=== PATIENT | male | born 1955 | race Caucasian/White ===

== ENCOUNTER 2019-11-24 02:15 | Inpatient (IN) ==
[2019-11-24] MEDS ORDERED: Naloxone 0.4 MG/ML INJ IVP PRN (06:05)
[2019-11-24] MEDS ORDERED: Acetaminophen 325 MG TABLET PO PRN (06:05)
[2019-11-24] MEDS ORDERED: 0.9 % Sodium Chloride 1,000 ML IVC SCH (06:15)
[2019-11-24] MEDS ORDERED: *HR* LORazepam 2 MG/ML VIAL IVP PRN ×3 (06:25→08:18)
[2019-11-24 07:25] LABS: Basophils % 0.2 %; Hematocrit 40.9 % (37.5-50.1); Hemoglobin 14.3 g/dL (12.9-16.9); Immature Granulocytes % 0.6 % (0-4); Lymphocytes # 0.5 K/mcL (0.6-4.6); Mean Corpuscular Hemoglobin 33.9 pg (28.0-33.3); Mean Corpuscular Volume 96.9 fL (83.0-100.0); Mean Platelet Volume 10.3 fL (9.4-12.4); Monocytes # 0.2 K/mcL (0.0-1.3); Monocytes % 1.4 %; Neutrophils # 10.9 K/mcL (1.6-8.9); Platelet Count 103 K/mcL (140-400); Red Blood Count 4.22 M/mcL (4.19-5.50); Red Cell Distribution Width 12.5 % (11.5-14.5); Segmented Neutrophils % 93.8 %; White Blood Count 11.6 K/mcL (4.3-11.1)
[2019-11-24 07:26] LABS: INR 1.3; Prothrombin Time 14.5 Seconds (9.4-12.1)
[2019-11-24] MEDS ORDERED: Magnesium Sulfate 1 GM/102 ML PIGGYBACK IVPB ONE (07:27)
[2019-11-24 07:28] LABS: Activated Partial Thrombo Time 32.2 Seconds (26.0-36.0)
[2019-11-24 07:47] LABS: Alanine Aminotransferase 79 Units/L (7-52); Albumin 3.2 g/dL (3.5-5.7); Albumin/Globulin Ratio 0.8 (1.1-2.2); Alkaline Phosphatase 105 Units/L (34-104); Aspartate Amino Transferase 122 Units/L (13-39); BUN/Creatinine Ratio 10 (6-26); Bilirubin,Direct 1.9 mg/dL (0.0-0.2); Bilirubin,Indirect 1.7 mg/dL (0.0-1.0); Bilirubin,Total 3.6 mg/dL (0.3-1.0); Blood Urea Nitrogen 7 mg/dL (8-23); Calcium 8.9 mg/dL (8.6-10.3); Carbon Dioxide 34 mEq/L (23-29); Chloride 73 mEq/L (98-107); Globulin 3.9 g/dL (2.4-3.5); Glucose 159 mg/dL (70-105); Osmolality,Calculated 241 (280-300); Potassium 3.3 mEq/L (3.5-5.1); Sodium 115 mEq/L (136-145); Total Protein 7.1 g/dL (6.4-8.9); eGFR For African Americans > 60 (> 60); eGFR For Non-African Americans > 60 (> 60)
[2019-11-24] MEDS: Ipratropium/Albuterol Neb 3 ML IH SCH ×5 (08:02→22:14)
[2019-11-24] MEDS: Thiamine (B-1) 100 MG, Folic Acid 1 MG, MVI, adult with vitamin K 10 ML in 0.9 % Sodi... IVPB SCH (08:30)
[2019-11-24] MEDS: *HR* LORazepam 2 MG/ML VIAL IVP PRN ×3 (08:44→20:23)
[2019-11-24] MEDS: Piperacillin/Tazobactam 3.375 GM in 0.9 % Sodium Chloride Mini Bag 100 ML IVPB SCH ×2 (09:26→17:37)
[2019-11-24] MEDS: Nicotine 21 MG PATCH.TD24 TD SCH (09:27)
[2019-11-24] MEDS: predniSONE 20 MG TABLET PO SCH (09:28)
[2019-11-24] MEDS: Azithromycin 250 MG TABLET PO SCH (09:28)
[2019-11-24 09:57] LABS: BUN/Creatinine Ratio 11 (6-26); Blood Urea Nitrogen 7 mg/dL (8-23); Calcium 9.3 mg/dL (8.6-10.3); Carbon Dioxide 34 mEq/L (23-29); Chloride 73 mEq/L (98-107); Glucose 153 mg/dL (70-105); Osmolality,Calculated 245 (280-300); Potassium 3.2 mEq/L (3.5-5.1); Sodium 117 mEq/L (136-145); Uric Acid 6.9 mg/dL (2.3-7.6); eGFR For African Americans > 60 (> 60); eGFR For Non-African Americans > 60 (> 60)
[2019-11-24] MEDS ORDERED: Lidocaine -MPF 1% 5 ML AMPUL INFILT ONE (10:06)
[2019-11-24 10:17] LABS: Magnesium 2.3 mg/dL (1.6-2.6); Phosphorous 2.8 mg/dL (2.7-4.5)
[2019-11-24] MEDS: Budesonide/Formoterol 160/4.5 1 PUFF INH IH SCH ×2 (11:12→22:16)
[2019-11-24] MEDS ORDERED: 0.9 % Sodium Chloride w KCl 20 MEQ/1,000 ML MLS IVC SCH (11:45)
[2019-11-24 12:19] LABS: Bilirubin,Urine Negative (Negative); Blood,Urine Negative (Negative); Clarity,Urine Clear (Clear); Color,Urine Yellow (Yellow); Glucose,Urine (UA) Normal (Normal); Ketones,Urine Negative (Negative); Leukocyte Esterase,Urine Negative (Negative); Nitrite,Urine Negative (Negative); PH,Urine 5.5 pH Units (5.0-8.0); Protein,Urine Negative (Neg-Trace); Specific Gravity,Urine 1.007 (1.010-1.025)
[2019-11-24] MEDS ORDERED: NON-FORMULARY MEDICATION 1 EACH EACH (Ipratropium/Albuterol Sulfate 4 GM) IH SCH (13:00)
[2019-11-24 14:47] LABS: BUN/Creatinine Ratio 16 (6-26); Blood Urea Nitrogen 7 mg/dL (8-23); Calcium 8.1 mg/dL (8.6-10.3); Carbon Dioxide 34 mEq/L (23-29); Chloride 82 mEq/L (98-107); Glucose 146 mg/dL (70-105); Osmolality,Calculated 253 (280-300); Potassium 2.9 mEq/L (3.5-5.1); Sodium 121 mEq/L (136-145); eGFR For African Americans > 60 (> 60); eGFR For Non-African Americans > 60 (> 60)
[2019-11-24] MEDS ORDERED: tiZANidine 4 MG TABLET PO PRN (15:49)
[2019-11-24 20:19] LABS: BUN/Creatinine Ratio 17 (6-26); Blood Urea Nitrogen 7 mg/dL (8-23); Calcium 7.9 mg/dL (8.6-10.3); Carbon Dioxide 31 mEq/L (23-29); Chloride 84 mEq/L (98-107); Glucose 141 mg/dL (70-105); Osmolality,Calculated 248 (280-300); Potassium 5.8 mEq/L (3.5-5.1); Sodium 119 mEq/L (136-145); eGFR For African Americans > 60 (> 60); eGFR For Non-African Americans > 60 (> 60)
[2019-11-24] MEDS: carvediloL 25 MG TABLET PO SCH (20:27)
[2019-11-24] MEDS: Gabapentin 300 MG CAPSULE PO SCH (20:28)
[2019-11-24 21:39] LABS: BUN/Creatinine Ratio 16 (6-26); Blood Urea Nitrogen 7 mg/dL (8-23); Calcium 7.9 mg/dL (8.6-10.3); Carbon Dioxide 30 mEq/L (23-29); Chloride 84 mEq/L (98-107); Glucose 148 mg/dL (70-105); Osmolality,Calculated 253 (280-300); Potassium 3.4 mEq/L (3.5-5.1); Sodium 121 mEq/L (136-145); eGFR For African Americans > 60 (> 60); eGFR For Non-African Americans > 60 (> 60)
[2019-11-25] MEDS: Piperacillin/Tazobactam 3.375 GM in 0.9 % Sodium Chloride Mini Bag 100 ML IVPB SCH ×3 (00:19→16:28)
[2019-11-25] MEDS: Ipratropium/Albuterol Neb 3 ML IH SCH ×4 (03:22→22:04)
[2019-11-25 04:06] LABS: Hematocrit 37.8 % (37.5-50.1)
[2019-11-25 04:08] LABS: Hemoglobin 13.2 g/dL (12.9-16.9); Immature Platelets 6.2 % (1.1-6.1); Mean Corpuscular HGB Conc 34.9 g/dL (31.6-35.5); Mean Corpuscular Hemoglobin 34.6 pg (28.0-33.3); Mean Corpuscular Volume 99.2 fL (83.0-100.0); Mean Platelet Volume 10.3 fL (9.4-12.4); Red Blood Count 3.81 M/mcL (4.19-5.50); Red Cell Distribution Width 12.6 % (11.5-14.5); White Blood Count 16.6 K/mcL (4.3-11.1)
[2019-11-25 04:20] LABS: Alanine Aminotransferase 59 Units/L (7-52); Albumin 2.7 g/dL (3.5-5.7); Albumin/Globulin Ratio 0.8 (1.1-2.2); Alkaline Phosphatase 85 Units/L (34-104); Aspartate Amino Transferase 76 Units/L (13-39); BUN/Creatinine Ratio 18 (6-26); Bilirubin,Total 2.1 mg/dL (0.3-1.0); Blood Urea Nitrogen 7 mg/dL (8-23); Carbon Dioxide 32 mEq/L (23-29); Chloride 87 mEq/L (98-107); Globulin 3.3 g/dL (2.4-3.5); Glucose 138 mg/dL (70-105); Osmolality,Calculated 258 (280-300); Phosphorous 2.9 mg/dL (2.7-4.5); Potassium 3.4 mEq/L (3.5-5.1); Sodium 124 mEq/L (136-145); eGFR For African Americans > 60 (> 60); eGFR For Non-African Americans > 60 (> 60)
[2019-11-25] MEDS: *HR* Enoxaparin 40 MG/0.4 ML SYRINGE SQ SCH (05:57)
[2019-11-25] MEDS: Nicotine 21 MG PATCH.TD24 TD SCH (08:13)
[2019-11-25] MEDS: carvediloL 25 MG TABLET PO SCH ×2 (08:14→21:09)
[2019-11-25] MEDS: Azithromycin 250 MG TABLET PO SCH (08:14)
[2019-11-25] MEDS: Gabapentin 300 MG CAPSULE PO SCH ×3 (08:14→21:09)
[2019-11-25] MEDS: Isosorbide MONOnitrate (24 HR) 30 MG TAB.ER.24H PO SCH (08:14)
[2019-11-25] MEDS: predniSONE 20 MG TABLET PO SCH (08:14)
[2019-11-25] MEDS ORDERED: NON-FORMULARY MEDICATION 1 EACH EACH (Multivitamin [Daily Multiple Vitamin] 1 TAB) PO SCH (09:00)
[2019-11-25] MEDS: Budesonide/Formoterol 160/4.5 1 PUFF INH IH SCH ×2 (11:32→22:05)
[2019-11-25] MEDS: Thiamine (B-1) 100 MG, Folic Acid 1 MG, MVI, adult with vitamin K 10 ML in 0.9 % Sodi... IVPB SCH (16:38)
[2019-11-26] MEDS: Piperacillin/Tazobactam 3.375 GM in 0.9 % Sodium Chloride Mini Bag 100 ML IVPB SCH ×2 (00:55→08:51)
[2019-11-26 03:23] LABS: Hematocrit 34.7 % (37.5-50.1); Hemoglobin 11.9 g/dL (12.9-16.9); Immature Platelets 4.6 % (1.1-6.1); Mean Corpuscular HGB Conc 34.3 g/dL (31.6-35.5); Mean Corpuscular Hemoglobin 33.9 pg (28.0-33.3); Mean Corpuscular Volume 98.9 fL (83.0-100.0); Mean Platelet Volume 9.8 fL (9.4-12.4); Red Blood Count 3.51 M/mcL (4.19-5.50); White Blood Count 11.2 K/mcL (4.3-11.1)
[2019-11-26] MEDS: Ipratropium/Albuterol Neb 3 ML IH SCH ×4 (03:26→22:22)
[2019-11-26 03:34] LABS: BUN/Creatinine Ratio 19 (6-26); Blood Urea Nitrogen 8 mg/dL (8-23); Calcium 7.8 mg/dL (8.6-10.3); Carbon Dioxide 30 mEq/L (23-29); Chloride 96 mEq/L (98-107); Glucose 117 mg/dL (70-105); Magnesium 1.9 mg/dL (1.6-2.6); Osmolality,Calculated 273 (280-300); Phosphorous 1.8 mg/dL (2.7-4.5); Potassium 3.4 mEq/L (3.5-5.1); Sodium 132 mEq/L (136-145); eGFR For African Americans > 60 (> 60); eGFR For Non-African Americans > 60 (> 60)
[2019-11-26] MEDS: *HR* Enoxaparin 40 MG/0.4 ML SYRINGE SQ SCH (03:57)
[2019-11-26] MEDS: Azithromycin 250 MG TABLET PO SCH (08:50)
[2019-11-26] MEDS: Gabapentin 300 MG CAPSULE PO SCH ×3 (08:50→19:51)
[2019-11-26] MEDS: Nicotine 21 MG PATCH.TD24 TD SCH (08:51)
[2019-11-26] MEDS: predniSONE 20 MG TABLET PO SCH (08:51)
[2019-11-26] MEDS: carvediloL 25 MG TABLET PO SCH ×2 (08:51→19:51)
[2019-11-26] MEDS: Isosorbide MONOnitrate (24 HR) 30 MG TAB.ER.24H PO SCH (08:51)
[2019-11-26] MEDS: Budesonide/Formoterol 160/4.5 1 PUFF INH IH SCH ×2 (10:41→22:22)
[2019-11-26] MEDS ORDERED: Potassium Phosphate 44 MEQ in 0.9 % Sodium Chloride 250 ML IVPB ONE (11:58)
[2019-11-26] MEDS: Thiamine (B-1) 100 MG, Folic Acid 1 MG, MVI, adult with vitamin K 10 ML in 0.9 % Sodi... IVPB SCH (17:20)
[2019-11-27 03:00] LABS: Eosinophils % 0.2 %; Mean Corpuscular HGB Conc 33.2 g/dL (31.6-35.5); Mean Corpuscular Volume 100.8 fL (83.0-100.0); Mean Platelet Volume 9.7 fL (9.4-12.4)
[2019-11-27 03:02] LABS: Basophils % 0.1 %; Hemoglobin 12.3 g/dL (12.9-16.9); Immature Platelets 4.5 % (1.1-6.1); Lymphocytes % 9.9 %; Mean Corpuscular Hemoglobin 33.5 pg (28.0-33.3); Monocytes # 0.8 K/mcL (0.0-1.3); Neutrophils # 8.2 K/mcL (1.6-8.9); Red Blood Count 3.67 M/mcL (4.19-5.50); Red Cell Distribution Width 13.4 % (11.5-14.5); Segmented Neutrophils % 80.8 %; White Blood Count 10.2 K/mcL (4.3-11.1)
[2019-11-27 03:10] LABS: Platelet Count 78 K/mcL (140-400)
[2019-11-27 03:15] LABS: BUN/Creatinine Ratio 20 (6-26); Blood Urea Nitrogen 8 mg/dL (8-23); Calcium 7.9 mg/dL (8.6-10.3); Carbon Dioxide 31 mEq/L (23-29); Chloride 100 mEq/L (98-107); Glucose 110 mg/dL (70-105); Magnesium 1.8 mg/dL (1.6-2.6); Osmolality,Calculated 277 (280-300); Phosphorous 2.2 mg/dL (2.7-4.5); Potassium 3.7 mEq/L (3.5-5.1); Sodium 134 mEq/L (136-145); eGFR For African Americans > 60 (> 60); eGFR For Non-African Americans > 60 (> 60)
[2019-11-27] MEDS: Ipratropium/Albuterol Neb 3 ML IH SCH ×2 (03:28→10:09)
[2019-11-27] MEDS: *HR* Enoxaparin 40 MG/0.4 ML SYRINGE SQ SCH (05:08)
[2019-11-27 06:50] VITALS: BP 151/97
[2019-11-27] MEDS: Gabapentin 300 MG CAPSULE PO SCH (08:55)
[2019-11-27] MEDS: predniSONE 20 MG TABLET PO SCH (08:55)
[2019-11-27] MEDS: Azithromycin 250 MG TABLET PO SCH (08:55)
[2019-11-27] MEDS: Isosorbide MONOnitrate (24 HR) 30 MG TAB.ER.24H PO SCH (08:55)
[2019-11-27] MEDS: carvediloL 25 MG TABLET PO SCH (08:55)
[2019-11-27] MEDS: Nicotine 21 MG PATCH.TD24 TD SCH (08:55)
[2019-11-27] MEDS: Budesonide/Formoterol 160/4.5 1 PUFF INH IH SCH (10:10)
== END 2019-11-27 12:33 | disposition home health service (06) | DRG 871 ==
LOC: 2NNU → SUATTDRO 04:36 → 2NNU 04:58
PROVIDERS: ADMIT Student in an Organized Health Care Education/Training Program; ATTEND Internal Medicine